=== PATIENT | female | born 2000 | race Hispanic/Latino ===

== ENCOUNTER → 2023-10-21 | Emergency (ER) | payer BC, OTHER ==
--- OUTSIDE RECORDS SUMMARY | 2023-10-21 01:53 | XMS REPORT | Continuity of Care Document ---
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 Role Phone FINA BECERRA JR Primary Care Physician ASIM Ospina Attending Clinician Unavailable Asim Fernandes MD Attending Clinician [phone] Doctor Unassigned, [place] Attending Clinician U SOURAV Kwon Attending Clinician UnavailSourav Walker Attending Clinician + [phone] Gloria Garland PA-C Attending Clinician [phone], [facility] Attending Clinician Unavailable GLORIA GARLAND Attending Clinician Unavailable YEE ALCANTARA Attending Clinician Unavailable Yee Alcantara MD Attending Clinician [phone] Steffen Hale DO Attending Clinician [phone] Trinity Conner DO Attending Clinician [phone] TRINITY CONNER Attending Clinician Unavailable NUNO MATTHEW Attending Clinician UnavailNUNO Rich Attending Clinician UnavailNuno Rich MD Attending Clinician + [phone] Jessica Cardenas RN Attending Clinician Unavailable Nurse, [facility] Attending Clinician Un available Catarino Gary CRNA Attending Clinician + [phone] ASIM FERNANDES Admitting Clinician Unavailable SOURAV AGUIRRE Admitting Clinician Unavaila GLORIA Mcdermott Admitting Clinician Unavailable TRINITY CONNER Admitting Clinician Unavailable NUNO MATTHEW Admitting Clinician UnavailNuno Rich MD Admitting Clinician [phone] Payers Payer Name Policy Type Policy Number Effective Date Expirati on Date Source Problems Condition Name Condition Details Condition Category Status Onset Date Resolution Date Last Treatment Date Treating Clinician Comments Source Cyst of left ovary Cyst of left ovary Disease Active 2021-08 0 00:00: 00 [facility] Obesity (BMI 30-39.9) Obesity (BMI 30-39.9) Disease Active 2018-08 0 00:00: 00 [facility] Intramural leiomyoma of uterus Intramural leiomyoma of uterus Disease Active 05-10 00:00: 00 [facility] Postproced ural seroma of skin and subcutaneo us tissue following other procedure Postproced ural seroma of skin and subcutaneo us tissue following other procedure Disease Active 05-10 00:00: 00 [facility] S/P explorator y laparotomy S/P explorator y laparotomy Disease Active 04-22 00:00: 00 [facility] Pelvic mass Pelvic mass Disease Active 04-17 00:00: 00 Overview: Formattin g of this note might be different from the original. 04/22/19 - Myomectom y - 15 cm mass. Histology benign fibroid. 08/07/19 - A pelvic US measured 7.3 x 2.1 x 3.7 cm. The endometri al stripe was normal, measuring 3 mm. The left ovary measured 3.2 x 3.5 x 2.6 cm. The right ovary measured 2.7 x 3.8 x 3.1 cm. No pelvic mass, torsion or other acute process seen.. [facility] Secondary amenorrhea Secondary amenorrhea Disease Active 03-05 00:00: 00 [facility] PCOS (polycysti c ovarian syndrome) PCOS (polycysti c ovarian syndrome) Disease Active 03-05 00:00: 00 Overview: Formattin g of this note might be different from the original. 03/05/19 - FSH 7.5/LH 13.5, DHEA-S 3534, free testoster one normal; 19 [place] Progester one 114 (normal); AMH 10.3 [facility] Allergies, Adverse Reactions, Alerts Allergy Name Allergy Type Status Severity Reaction(s) Onset Date Inactive Date Treating Clinician Comments Source AZITHROM YCIN (BULK) DRUG Active Rash 11-17 00:00: 00 [facility] Azithrom ycin (Bulk) Propensi ty to adverse reaction s Active Rash 11-17 00:00: 00 [facility] Social History Social Habit Start Date Stop Date Quantity Comments Source History SDOH Alcohol Frequency [facility] History SDOH Alcohol Std Drinks [facility] History SDOH Alcohol Binge [facility] History of tobacco use Current smoker [facility] Sexual orientation U [facility] Alcohol intake 2023-10-18 00:00:00 2023-10-18 00:00:00 Current drinker of alcohol (finding) [facility] Exposure to SARS-CoV-2 (event) 2022-06-05 00:00:00 2022-06-15 20:00:00 Not sure [facility] Tobacco use and exposure 2022-06-05 00:00:00 2022-06-05 00:00:00 Smokeless tobacco non-user [facility] History of Social function 2021-07-28 00:00:00 2021-07-28 00:00:00 [facility] Alcohol Comment 2019-04-18 00:00:00 2019-04-18 00:00:00 Social Drinker [facility] Sex Assigned At 2000 00:00:00 2000 00:00:00 [facility] Smoking Status Start Date Stop Date Source Ex-smoker 2022-06-05 00:00:00 2022-06-05 00:00:00 U [facility] Medications Ordered Medication Name Filled Medication Name Start Date Stop Date Current Medication? Ordering Clinician Indication Dosage Frequency Signature (SIG) Comments Components Source metroNIDAZO LE (FLAGYL) 500 mg tablet 10-19 00:00: 00 10-26 05:59 :00 Yes [id number] 500mg Take 1 tablet by mouth in the morning and 1 tablet in the evening. Do all this for 7 days. [facility] clotrimazol e 1 % vaginal cream 10-19 00:00: 00 10-26 05:59 :00 Yes [id number] 1{appli cator} Insert 1 Applicator into vagina at bedtime for 7 days. [facility] triamcinolo ne acetonide 0.1 % ointment 10-18 00:00: 00 Yes [id number] Apply to area(s) 2 (two) times daily as needed for Itching. [facility] ketoconazol e 2 % cream 10-18 00:00: 00 Yes [id number] Apply to area(s) 2 (two) times daily. [facility] triamcinolo ne acetonide 0.1 % ointment 10-18 00:00: 00 Yes [id number] Apply to area(s) 2 (two) times daily as needed for Itching. [facility] ketoconazol e 2 % cream 10-18 00:00: 00 Yes [id number] Apply to area(s) 2 (two) times daily. [facility] triamcinolo ne acetonide 0.1 % ointment 10-18 00:00: 00 Yes [id number] Apply to area(s) 2 (two) times daily as needed for Itching. [facility] ketoconazol e 2 % cream 10-18 00:00: 00 Yes [id number] Apply to area(s) 2 (two) times daily. [facility] escitalopra m oxalate 10 mg tablet 05-18 00:00: 00 Yes TAKE 1 TABLET (10 MG) BY MOUTH DAILY. [facility] escitalopra m oxalate 10 mg tablet 05-18 00:00: 00 Yes TAKE 1 TABLET (10 MG) BY MOUTH DAILY. [facility] escitalopra m oxalate 10 mg tablet 05-18 00:00: 00 Yes TAKE 1 TABLET (10 MG) BY MOUTH DAILY. [facility] escitalopra m oxalate 10 mg tablet 2021-0 05-18 00:00: 00 Yes TAKE 1 TABLET (10 MG) BY MOUTH DAILY. [facility] escitalopra m oxalate 10 mg tablet 2021-0 05-18 00:00: 00 Yes TAKE 1 TABLET (10 MG) BY MOUTH DAILY. [facility] escitalopra m oxalate 10 mg tablet 0 05-18 00:00: 00 Yes TAKE 1 TABLET (10 MG) BY MOUTH DAILY. [facility] escitalopra m oxalate 10 mg tablet 0 05-18 00:00: 00 Yes TAKE 1 TABLET (10 MG) BY MOUTH DAILY. [facility] escitalopra m oxalate 10 mg tablet 0 05-18 00:00: 00 Yes TAKE 1 TABLET (10 MG) BY MOUTH DAILY. [facility] escitalopra m oxalate 10 mg tablet 0 05-18 00:00: 00 Yes TAKE 1 TABLET (10 MG) BY MOUTH DAILY. [facility] escitalopra m oxalate 10 mg tablet 0 05-18 00:00: 00 Yes TAKE 1 TABLET (10 MG) BY MOUTH DAILY. [facility] escitalopra m oxalate 10 mg tablet 0 05-18 00:00: 00 Yes TAKE 1 TABLET (10 MG) BY MOUTH DAILY. [facility] escitalopra m oxalate 10 mg tablet 0 05-18 00:00: 00 Yes TAKE 1 TABLET (10 MG) BY MOUTH DAILY. [facility] escitalopra m oxalate 10 mg tablet 0 05-18 00:00: 00 Yes TAKE 1 TABLET (10 MG) BY MOUTH DAILY. [facility] escitalopra m oxalate 10 mg tablet 0 05-18 00:00: 00 Yes TAKE 1 TABLET (10 MG) BY MOUTH DAILY. [facility] escitalopra m oxalate 10 mg tablet 2021-0 05-18 00:00: 00 Yes TAKE 1 TABLET (10 MG) BY MOUTH DAILY. [facility] escitalopra m oxalate 10 mg tablet 05-18 00:00: 00 Yes TAKE 1 TABLET (10 MG) BY MOUTH DAILY. [facility] escitalopra m oxalate 10 mg tablet 05-18 00:00: 00 Yes TAKE 1 TABLET (10 MG) BY MOUTH DAILY. [facility] escitalopra m oxalate 10 mg tablet 05-18 00:00: 00 Yes TAKE 1 TABLET (10 MG) BY MOUTH DAILY. [facility] traMADoL 50 mg tablet 02-04 00:00: 00 Yes [id number] 50mg Take 1 tablet by mouth every 6 (six) hours as needed for Pain (scale 4-6). Indication s: acute pain [facility] ibuprofen 600 mg tablet 02-04 00:00: 00 Yes [id number] 600mg Take 1 tablet by mouth every 6 (six) hours as needed for Pain (scale 4-6). [facility] traMADoL 50 mg tablet 02-04 00:00: 00 Yes [id number] 50mg Take 1 tablet by mouth every 6 (six) hours as needed for Pain (scale 4-6). Indication s: acute pain [facility] ibuprofen 600 mg tablet 02-04 00:00: 00 Yes [id number] 600mg Take 1 tablet by mouth every 6 (six) hours as needed for Pain (scale 4-6). [facility] traMADoL 50 mg tablet 02-04 00:00: 00 Yes [id number] 50mg Take 1 tablet by mouth every 6 (six) hours as needed for Pain (scale 4-6). Indication s: acute pain [facility] ibuprofen 600 mg tablet 02-04 00:00: 00 Yes [id number] 600mg Take 1 tablet by mouth every 6 (six) hours as needed for Pain (scale 4-6). [facility] traMADoL 50 mg tablet 0 02-04 00:00: 00 Yes [id number] 50mg Take 1 tablet by mouth every 6 (six) hours as needed for Pain (scale 4-6). Indication s: acute pain [facility] ibuprofen 600 mg tablet 0 02-04 00:00: 00 Yes [id number] 600mg Take 1 tablet by mouth every 6 (six) hours as needed for Pain (scale 4-6). [facility] tra[facility]AD[facility] mg tablet 0 02-04 00:00: 00 Yes [id number] 50mg Take 1 tablet by mouth every 6 (six) hours as needed for Pain (scale 4-6). Indication s: acute pain [facility] ibuprofen 600 mg tablet 0 02-04 00:00: 00 Yes [id number] 600mg Take 1 tablet by mouth every 6 (six) hours as needed for Pain (scale 4-6). [facility] traMADoL 50 mg tablet 0 02-04 00:00: 00 Yes [id number] 50mg Take 1 tablet by mouth every 6 (six) hours as needed for Pain (scale 4-6). Indication s: acute pain [facility] ibuprofen 600 mg tablet 0 02-04 00:00: 00 Yes [id number] 600mg Take 1 tablet by mouth every 6 (six) hours as needed for Pain (scale 4-6). [facility] traMADoL 50 mg tablet 2021-0 02-04 00:00: 00 Yes [id number] 50mg Take 1 tablet by mouth every 6 (six) hours as needed for Pain (scale 4-6). Indication s: acute pain [facility] ibuprofen 600 mg tablet 0 02-04 00:00: 00 Yes [id number] 600mg Take 1 tablet by mouth every 6 (six) hours as needed for Pain (scale 4-6). [facility] traMADoL 50 mg tablet 0 02-04 00:00: 00 Yes [id number] 50mg Take 1 tablet by mouth every 6 (six) hours as needed for Pain (scale 4-6). Indication s: acute pain [facility] ibuprofen 600 mg tablet 2021-0 02-04 00:00: 00 Yes [id number] 600mg Take 1 tablet by mouth every 6 (six) hours as needed for Pain (scale 4-6). [facility] traMADoL 50 mg tablet 2021-0 02-04 00:00: 00 Yes [id number] 50mg Take 1 tablet by mouth every 6 (six) hours as needed for Pain (scale 4-6). Indication s: acute pain [facility] ibuprofen 600 mg tablet 2021-0 02-04 00:00: 00 Yes [id number] 600mg Take 1 tablet by mouth every 6 (six) hours as needed for Pain (scale 4-6). [facility] traMADoL 50 mg tablet 2021-0 02-04 00:00: 00 Yes [id number] 50mg Take 1 tablet by mouth every 6 (six) hours as needed for Pain (scale 4-6). Indication s: acute pain [facility] ibuprofen 600 mg tablet 2021-0 02-04 00:00: 00 Yes [id number] 600mg Take 1 tablet by mouth every 6 (six) hours as needed for Pain (scale 4-6). [facility] traMADoL 50 mg tablet 0 02-04 00:00: 00 Yes [id number] 50mg Take 1 tablet by mouth every 6 (six) hours as needed for Pain (scale 4-6). Indication s: acute pain [facility] ibuprofen 600 mg tablet 0 02-04 00:00: 00 Yes [id number] 600mg Take 1 tablet by mouth every 6 (six) hours as needed for Pain (scale 4-6). [facility] traMADoL 50 mg tablet 2021-0 02-04 00:00: 00 Yes [id number] 50mg Take 1 tablet by mouth every 6 (six) hours as needed for Pain (scale 4-6). Indication s: acute pain [facility] ibuprofen 600 mg tablet 2021-0 02-04 00:00: 00 Yes [id number] 600mg Take 1 tablet by mouth every 6 (six) hours as needed for Pain (scale 4-6). [facility] traMADoL 50 mg tablet 2021-0 6 00:00: 00 Yes [id number] 50mg Take 1 tablet by mouth every 6 (six) hours as needed for Pain (scale 4-6). Indication s: acute pain [facility] ibuprofen 600 mg tablet 2021-0 6-11 00:00: 00 Yes [id number] 600mg Take 1 tablet by mouth every 6 (six) hours as needed for Pain (scale 4-6). [facility] traMADoL 50 mg tablet 2021-0 611 00:00: 00 Yes [id number] 50mg Take 1 tablet by mouth every 6 (six) hours as needed for Pain (scale 4-6). Indication s: acute pain [facility] ibuprofen 600 mg tablet 2021-0 11 00:00: 00 Yes [id number] 600mg Take 1 tablet by mouth every 6 (six) hours as needed for Pain (scale 4-6). [facility] traMADoL 50 mg tablet 2021-0 02-04 00:00: 00 Yes [id number] 50mg Take 1 tablet by mouth every 6 (six) hours as needed for Pain (scale 4-6). Indication s: acute pain [facility] ibuprofen 600 mg tablet 2021-0 02-04 00:00: 00 Yes [id number] 600mg Take 1 tablet by mouth every 6 (six) hours as needed for Pain (scale 4-6). [facility] traMADoL 50 mg tablet 2021-0 02-04 00:00: 00 Yes [id number] 50mg Take 1 tablet by mouth every 6 (six) hours as needed for Pain (scale 4-6). Indication s: acute pain [facility] ibuprofen 600 mg tablet 2021-0 02-04 00:00: 00 Yes [id number] 600mg Take 1 tablet by mouth every 6 (six) hours as needed for Pain (scale 4-6). [facility] traMADoL 50 mg tablet 2021-0 02-04 00:00: 00 Yes [id number] 50mg Take 1 tablet by mouth every 6 (six) hours as needed for Pain (scale 4-6). Indication s: acute pain [facility] ibuprofen 600 mg tablet 2021-0 6-11 00:00: 00 Yes [id number] 600mg Take 1 tablet by mouth every 6 (six) hours as needed for Pain (scale 4-6). [facility] traMADoL 50 mg tablet 2021-0 6-11 00:00: 00 Yes [id number] 50mg Take 1 tablet by mouth every 6 (six) hours as needed for Pain (scale 4-6). Indication s: acute pain [facility] ibuprofen 600 mg tablet 2021-0 11 00:00: 00 Yes [id number] 600mg Take 1 tablet by mouth every 6 (six) hours as needed for Pain (scale 4-6). [facility] traMADoL 50 mg tablet 2021-0 02-04 00:00: 00 Yes [id number] 50mg Take 1 tablet by mouth every 6 (six) hours as needed for Pain (scale 4-6). Indication s: acute pain [facility] ibuprofen 600 mg tablet 2021-0 02-04 00:00: 00 Yes [id number] 600mg Take 1 tablet by mouth every 6 (six) hours as needed for Pain (scale 4-6). [facility] traMADoL 50 mg tablet 2021-0 02-04 00:00: 00 Yes [id number] 50mg Take 1 tablet by mouth every 6 (six) hours as needed for Pain (scale 4-6). Indication s: acute pain [facility] ibuprofen 600 mg tablet 2021-0 02-04 00:00: 00 Yes [id number] 600mg Take 1 tablet by mouth every 6 (six) hours as needed for Pain (scale 4-6). [facility] traMADoL 50 mg tablet 2021-0 02-04 00:00: 00 Yes [id number] 50mg Take 1 tablet by mouth every 6 (six) hours as needed for Pain (scale 4-6). Indication s: acute pain [facility] ibuprofen 600 mg tablet 2021-0 02-04 00:00: 00 Yes [id number] 600mg Take 1 tablet by mouth every 6 (six) hours as needed for Pain (scale 4-6). [facility] traMADoL 50 mg tablet 2021-0 11 00:00: 00 Yes [id number] 50mg Take 1 tablet by mouth every 6 (six) hours as needed for Pain (scale 4-6). Indication s: acute pain [facility] ibuprofen 600 mg tablet 2021-0 -11 00:00: 00 Yes [id number] 600mg Take 1 tablet by mouth every 6 (six) hours as needed for Pain (scale 4-6). [facility] traMADoL 50 mg tablet 0 6-11 00:00: 00 Yes [id number] 50mg Take 1 tablet by mouth every 6 (six) hours as needed for Pain (scale 4-6). Indication s: acute pain [facility] ibuprofen 600 mg tablet 0 02-04 00:00: 00 Yes [id number] 600mg Take 1 tablet by mouth every 6 (six) hours as needed for Pain (scale 4-6). [facility] traMADoL 50 mg tablet 0 02-04 00:00: 00 Yes [id number] 50mg Take 1 tablet by mouth every 6 (six) hours as needed for Pain (scale 4-6). Indication s: acute pain [facility] ibuprofen 600 mg tablet 0 02-04 00:00: 00 Yes [id number] 600mg Take 1 tablet by mouth every 6 (six) hours as needed for Pain (scale 4-6). [facility] traMADoL 50 mg tablet 02-04 00:00: 00 Yes [id number] 50mg Take 1 tablet by mouth every 6 (six) hours as needed for Pain (scale 4-6). Indication s: acute pain [facility] ibuprofen 600 mg tablet 0 02-04 00:00: 00 Yes [id number] 600mg Take 1 tablet by mouth every 6 (six) hours as needed for Pain (scale 4-6). [facility] traMADoL 50 mg tablet 02-04 00:00: 00 Yes [id number] 50mg Take 1 tablet by mouth every 6 (six) hours as needed for Pain (scale 4-6). Indication s: acute pain [facility] ibuprofen 600 mg tablet 02-04 00:00: 00 Yes [id number] 600mg Take 1 tablet by mouth every 6 (six) hours as needed for Pain (scale 4-6). [facility] SERTraline (ZOLOFT) 25 mg tablet 0 12-29 00:00: 00 Yes [id number] 25mg Take 1 tablet by mouth daily. [facility] SERTraline (ZOLOFT) 25 mg tablet 0 05 00:00: 00 Yes [id number] 25mg Take 1 tablet by mouth daily. [facility] SERTraline (ZOLOFT) 25 mg tablet 0 05 00:00: 00 Yes [id number] 25mg Take 1 tablet by mouth daily. [facility] SERTraline (ZOLOFT) 25 mg tablet 0 12-29 00:00: 00 Yes [id number] 25mg Take 1 tablet by mouth daily. [facility] SERTraline (ZOLOFT) 25 mg tablet 0 12-29 00:00: 00 Yes [id number] 25mg Take 1 tablet by mouth daily. [facility] SERTraline (ZOLOFT) 25 mg tablet 0 05 00:00: 00 Yes [id number] 25mg Take 1 tablet by mouth daily. [facility] SERTraline (ZOLOFT) 25 mg tablet 0 12-29 00:00: 00 Yes [id number] 25mg Take 1 tablet by mouth daily. [facility] SERTraline (ZOLOFT) 25 mg tablet 0 05 00:00: 00 Yes [id number] 25mg Take 1 tablet by mouth daily. [facility] SERTraline (ZOLOFT) 25 mg tablet 0 05 00:00: 00 Yes [id number] 25mg Take 1 tablet by mouth daily. [facility] SERTraline (ZOLOFT) 25 mg tablet 0 05 00:00: 00 Yes [id number] 25mg Take 1 tablet by mouth daily. [facility] SERTraline (ZOLOFT) 25 mg tablet 0 05 00:00: 00 Yes [id number] 25mg Take 1 tablet by mouth daily. [facility] SERTraline (ZOLOFT) 25 mg tablet 0 05 00:00: 00 Yes [id number] 25mg Take 1 tablet by mouth daily. [facility] SERTraline (ZOLOFT) 25 mg tablet 0 05 00:00: 00 Yes [id number] 25mg Take 1 tablet by mouth daily. [facility] SERTraline (ZOLOFT) 25 mg tablet 0 05 00:00: 00 Yes [id number] 25mg Take 1 tablet by mouth daily. [facility] SERTraline (ZOLOFT) 25 mg tablet 0 505 00:00: 00 Yes [id number] 25mg Take 1 tablet by mouth daily. [facility] SERTraline (ZOLOFT) 25 mg tablet 2021-0 505 00:00: 00 Yes [id number] 25mg Take 1 tablet by mouth daily. [facility] SERTraline (ZOLOFT) 25 mg tablet 0 505 00:00: 00 Yes [id number] 25mg Take 1 tablet by mouth daily. [facility] SERTraline (ZOLOFT) 25 mg tablet 2021-0 05 00:00: 00 Yes [id number] 25mg Take 1 tablet by mouth daily. [facility] SERTraline (ZOLOFT) 25 mg tablet 2021-0 05 00:00: 00 Yes [id number] 25mg Take 1 tablet by mouth daily. [facility] SERTraline (ZOLOFT) 25 mg tablet 2021-0 05 00:00: 00 Yes [id number] 25mg Take 1 tablet by mouth daily. [facility] SERTraline (ZOLOFT) 25 mg tablet 0 05 00:00: 00 Yes [id number] 25mg Take 1 tablet by mouth daily. [facility] SERTraline (ZOLOFT) 25 mg tablet 2021-0 05 00:00: 00 Yes [id number] 25mg Take 1 tablet by mouth daily. [facility] SERTraline (ZOLOFT) 25 mg tablet 2021-0 05 00:00: 00 Yes [id number] 25mg Take 1 tablet by mouth daily. [facility] SERTraline (ZOLOFT) 25 mg tablet 2021-0 505 00:00: 00 Yes [id number] 25mg Take 1 tablet by mouth daily. [facility] SERTraline (ZOLOFT) 25 mg tablet 2021-0 5-05 00:00: 00 Yes [id number] 25mg Take 1 tablet by mouth daily. [facility] SERTraline (ZOLOFT) 25 mg tablet 12-29 00:00: 00 Yes [id number] 25mg Take 1 tablet by mouth daily. [facility] SERTraline (ZOLOFT) 25 mg tablet 12-29 00:00: 00 Yes [id number] 25mg Take 1 tablet by mouth daily. [facility] norgestimat e-ethinyl estradioL 0.18/0.215/ 0.25 mg-35 mcg (28) tablet 11-10 00:00: 00 Yes [id number] 1{tbl} Take 1 tablet by mouth daily. [facility] norgestimat e-ethinyl estradioL 0.18/0.215/ 0.25 mg-35 mcg (28) tablet 11-10 00:00: 00 Yes [id number] 1{tbl} Take 1 tablet by mouth daily. [facility] norgestimat e-ethinyl estradioL 0.18/0.215/ 0.25 mg-35 mcg (28) tablet 11-10 00:00: 00 Yes [id number] 1{tbl} Take 1 tablet by mouth daily. [facility] norgestimat e-ethinyl estradioL 0.18/0.215/ 0.25 mg-35 mcg (28) tablet 11-10 00:00: 00 Yes [id number] 1{tbl} Take 1 tablet by mouth daily. [facility] norgestimat e-ethinyl estradioL 0.18/0.215/ 0.25 mg-35 mcg (28) tablet 11-10 00:00: 00 Yes [id number] 1{tbl} Take 1 tablet by mouth daily. [facility] norgestimat e-ethinyl estradioL 0.18/0.215/ 0.25 mg-35 mcg (28) tablet 11-10 00:00: 00 Yes [id number] 1{tbl} Take 1 tablet by mouth daily. [facility] norgestimat e-ethinyl estradioL 0.18/0.215/ 0.25 mg-35 mcg (28) tablet 11-10 00:00: 00 Yes [id number] 1{tbl} Take 1 tablet by mouth daily. [facility] norgestimat e-ethinyl estradioL 0.18/0.215/ 0.25 mg-35 mcg (28) tablet 11-10 00:00: 00 Yes [id number] 1{tbl} Take 1 tablet by mouth daily. [facility] norgestimat e-ethinyl estradioL 0.18/0.215/ 0.25 mg-35 mcg (28) tablet 11-10 00:00: 00 Yes [id number] 1{tbl} Take 1 tablet by mouth daily. [facility] norgestimat e-ethinyl estradioL 0.18/0.215/ 0.25 mg-35 mcg (28) tablet 11-10 00:00: 00 Yes [id number] 1{tbl} Take 1 tablet by mouth daily. [facility] norgestimat e-ethinyl estradioL 0.18/0.215/ 0.25 mg-35 mcg (28) tablet 11-10 00:00: 00 Yes [id number] 1{tbl} Take 1 tablet by mouth daily. [facility] norgestimat e-ethinyl estradioL 0.18/0.215/ 0.25 mg-35 mcg (28) tablet 11-10 00:00: 00 Yes [id number] 1{tbl} Take 1 tablet by mouth daily. [facility] norgestimat e-ethinyl estradioL 0.18/0.215/ 0.25 mg-35 mcg (28) tablet 11-10 00:00: 00 Yes [id number] 1{tbl} Take 1 tablet by mouth daily. [facility] norgestimat e-ethinyl estradioL 0.18/0.215/ 0.25 mg-35 mcg (28) tablet 11-10 00:00: 00 Yes [id number] 1{tbl} Take 1 tablet by mouth daily. [facility] norgestimat e-ethinyl estradioL 0.18/0.215/ 0.25 mg-35 mcg (28) tablet 11-10 00:00: 00 Yes [id number] 1{tbl} Take 1 tablet by mouth daily. [facility] norgestimat e-ethinyl estradioL 0.18/0.215/ 0.25 mg-35 mcg (28) tablet 11-10 00:00: 00 Yes [id number] 1{tbl} Take 1 tablet by mouth daily. [facility] norgestimat e-ethinyl estradioL 0.18/0.215/ 0.25 mg-35 mcg (28) tablet 11-10 00:00: 00 Yes [id number] 1{tbl} Take 1 tablet by mouth daily. [facility] norgestimat e-ethinyl estradioL 0.18/0.215/ 0.25 mg-35 mcg (28) tablet 11-10 00:00: 00 Yes [id number] 1{tbl} Take 1 tablet by mouth daily. [facility] norgestimat e-ethinyl estradioL 0.18/0.215/ 0.25 mg-35 mcg (28) tablet 11-10 00:00: 00 Yes [id number] 1{tbl} Take 1 tablet by mouth daily. [facility] norgestimat e-ethinyl estradioL 0.18/0.215/ 0.25 mg-35 mcg (28) tablet 11-10 00:00: 00 Yes [id number] 1{tbl} Take 1 tablet by mouth daily. [facility] norgestimat e-ethinyl estradioL 0.18/0.215/ 0.25 mg-35 mcg (28) tablet 11-10 00:00: 00 Yes [id number] 1{tbl} Take 1 tablet by mouth daily. [facility] norgestimat e-ethinyl estradioL 0.18/0.215/ 0.25 mg-35 mcg (28) tablet 11-10 00:00: 00 Yes [id number] 1{tbl} Take 1 tablet by mouth daily. [facility] norgestimat e-ethinyl estradioL 0.18/0.215/ 0.25 mg-35 mcg (28) tablet 11-10 00:00: 00 Yes [id number] 1{tbl} Take 1 tablet by mouth daily. [facility] norgestimat e-ethinyl estradioL 0.18/0.215/ 0.25 mg-35 mcg (28) tablet 11-10 00:00: 00 Yes [id number] 1{tbl} Take 1 tablet by mouth daily. [facility] norgestimat e-ethinyl estradioL 0.18/0.215/ 0.25 mg-35 mcg (28) tablet 11-10 00:00: 00 Yes [id number] 1{tbl} Take 1 tablet by mouth daily. [facility] norgestimat e-ethinyl estradioL 0.18/0.215/ 0.25 mg-35 mcg (28) tablet 11-10 00:00: 00 Yes [id number] 1{tbl} Take 1 tablet by mouth daily. [facility] norgestimat e-ethinyl estradioL 0.18/0.215/ 0.25 mg-35 mcg (28) tablet 11-10 00:00: 00 Yes [id number] 1{tbl} Take 1 tablet by mouth daily. [facility] SERTraline (ZOLOFT) 25 mg tablet 11-10 00:00: 00 12-29 00:00 :00 No [id number] 25mg Take 1 tablet by mouth daily. [facility] norgestimat e-ethinyl estradioL 0.18/0.215/ 0.25 mg-35 mcg (28) tablet 2020-08 00:00: 00 10-18 00:00 :00 No [id number] 1{tbl} Take 1 tablet by mouth daily. [facility] Vital Signs Vital Name Observation Time Observation Value Comments S ource Systolic blood pressure 2023-10-18 16:34:00 110 mm[Hg] [facility] Diastolic blood pressure 2023-10-18 16:34:00 75 mm[Hg] [facility] Heart rate 2023-10-18 16:33:00 80 /min Unive [facility] Body temperature 2023-10-18 16:33:00 36.22 Magaly [facility] Body weight 2023-10-18 16:33:00 69.219 kg [facility] BMI 2023-10-18 16:33:00 29.80 kg/m2 [facility] Systolic blood pressure 2022-06-16 16:07:00 131 mm[Hg] [facility] Diastolic blood pressure 2022-06-16 16:07:00 83 mm[Hg] [facility] Heart rate 2022-06-16 16:07:00 100 /min Unive [facility] Body temperature 2022-06-16 16:07:00 37.11 Magaly [facility] Body weight 2022-06-16 16:07:00 72.712 kg [facility] BMI 2022-06-16 16:07:00 31.31 kg/m2 [facility] Systolic blood pressure 2022-06-16 01:02:25 124 mm[Hg] [facility] Diastolic blood pressure 2022-06-16 01:02:25 80 mm[Hg] [facility] Heart rate 2022-06-16 01:02:25 74 /min [facility] Respiratory rate 2022-06-16 01:02:25 18 /min [facility] Oxygen saturation in Arterial blood by Pulse oximetry 2022-06-16 01:02:25 100 /min [facility] Body temperature 2022-06-15 23:00:00 36.83 Magaly [facility] Body weight 2022-06-15 23:00:00 72.576 kg [facility] BMI 2022-06-15 23:00:00 31.25 kg/m2 [facility] Systolic blood pressure 2022-06-05 18:18:00 128 mm[Hg] [facility] Diastolic blood pressure 2022-06-05 18:18:00 88 mm[Hg] [facility] Heart rate 2022-06-05 18:18:00 68 /min Unive [facility] Body temperature 2022-06-05 18:18:00 36.72 Magaly [facility] Respiratory rate 2022-06-05 18:18:00 18 /min [facility] Body height 2022-06-05 18:18:00 152.4 cm [facility] Body weight 2022-06-05 18:18:[address] [facility] BMI 2022-06-05 18:18:00 31.25 kg/m2 [facility] Systolic blood pressure 2022-02-04 13:16:00 156 mm[Hg] [facility] Diastolic blood pressure 2022-02-04 13:16:00 99 mm[Hg] [facility] Heart rate 2022-02-04 13:16:00 85 /min Unive [facility] Body temperature 2022-02-04 13:16:00 37.17 Magaly [facility] Respiratory rate 2022-02-04 13:16:00 16 /min [facility] Body height 2022-02-04 13:16:[address] [facility] Body weight 2022-02-04 13:16:[address] [facility] BMI 2022-02-04 13:16:00 30.47 kg/m2 [facility] Oxygen saturation in Arterial blood by Pulse oximetry 2022-02-04 13:16:00 99 /min [facility] Systolic blood pressure 2021-12-29 18:48:00 122 mm[Hg] [facility] Diastolic blood pressure 2021-12-29 18:48:00 75 mm[Hg] [facility] Heart rate 2021-12-29 18:48:00 104 /min Unive [facility] Body temperature 2021-12-29 18:48:00 37.11 Magaly [facility] Body height 2021-12-29 18:48:[address] [facility] Body weight 2021-12-29 18:48:[address] [facility] BMI 2021-12-29 18:48:00 31.09 kg/m2 [facility] Procedures Procedure Date / Time Performed Performing Clinician Source ASSIGNMENT OF BENEFITS 2023-10-18 16:23:22 Docto r Unassigned, Morea [facility] US PELVIS COMPLETE WITH TRANSVAGINAL 2022-08-24 14:43:31 Asmi Fernandes [facility] ASSIGNMENT OF BENEFITS 2022-08-24 13:52:08 Docto r Unassigned, Morea [facility] ASSIGNMENT OF BENEFITS 2022-06-15 23:55:19 Docto r Unassigned, [facility] PELVIS COMPLETE WITH TRANSVAGINAL 2022-06-15 23:51:31 Sourav Aguirre [facility] POCT TEST 2022-06-15 23:23:00 Paulie Aguirre [facility] URINALYSIS 2022-06-15 23:20:00 Sourav Aguirre [facility] CONSENT/REFUSAL FOR DIAGNOSIS AND TREATMENT 2022-06-15 22:58:19 Doctor Unassigned, Morea [facility] US PELVIS COMPLETE WITH TRANSVAGINAL 2022-06-09 22:50:00 Gloria Garland [facility] ASSIGNMENT OF BENEFITS 2022-06-09 22:09:40 Docto r Unassigned, Morea [facility] CONSENT/REFUSAL FOR DIAGNOSIS AND TREATMENT 2022-06-09 22:08:59 Doctor Unassigned, Morea [facility] POCT URINALYSIS W/O SPECIFIC GRAVITY 2022-06-05 00:00:00 Gloria Garland [facility] NOTICE OF PRIVACY PRACTICES 2022-02-04 13:13:21 Doctor Unassigned, Morea [facility] CONSENT/REFUSAL FOR DIAGNOSIS AND TREATMENT 2022-02-04 13:11:12 Doctor Unassigned, Morea [facility] Encounters Start Date/Time End Date/Time Encounter Type Admission Type Attending [facility] Care Facility Care Department Encounter ID Source 2023-10-19 00:00:00 2023-10-19 00:00:00 Case Management Asim Fernandes [facility] ED PROFESSIO [facility] 1.840.114 350.1.13.10 4.2.7.2.686 [id number] 134 [id number] [facility] 2023-10-18 10:30:00 2023-10-18 10:50:05 Outpatient R DENA [facility] [id number] [facility] 2023-10-18 10:30:00 2023-10-18 10:50:05 Office Visit Asim Fernandes [facility] ED PROFESSIO [facility] 1.840.114 350.1.13.10 4.2.7.2.686 [id number] [facility] 2023-10-18 00:00:00 2023-10-18 00:00:00 Orders Only Doctor Unassigned, More[place] [facility] 1.84.114 350.1.13.10 4.2.7.2.686 [id number] [facility] 2022-08-24 07:53:21 2022-08-24 23:59:00 Outpatient R DENA [facility] [id number] [facility] 2022-08-24 07:53:21 2022-08-24 23:59:00 [facility] 1.84.114 350.1.13.10 4.2.7.2.686 [id number] [facility] 2022-08-24 00:00:00 2022-08-24 00:00:00 Orders Only Doctor Unassigned, [place] [facility] 1..114 350.1.13.10 4.2.7.2.686 [id number] [facility] 2022-07-28 08:00:00 2022-07-28 08:00:00 Outpatient R [facility] [id number] [facility] 2022-06-16 11:00:00 2022-06-16 11:51:49 Outpatient R DENA ASIM [facility] [id number] [facility] 2022-06-16 11:00:00 2022-06-16 11:51:49 Office Visit [facility] 1.2.840.114 350.1.13.10 4.2.7.2.686 [id number] [facility] 2022-06-15 18:02:00 2022-06-15 20:04:00 Emergency X [facility] E[facility] [id number] [facility] 2022-06-15 18:02:00 2022-06-15 20:04:00 Emergency [facility] 1.2.840.114 350.1.13.10 4.2.7.2.686 [id number] [facility] 2022-06-15 00:00:00 2022-06-15 00:00:00 Patient Secure Msg [facility] 1.2.840.114 350.1.13.10 4.2.7.2.686 [id number] [facility] 2022 13:00:00 2022 13:15:00 Gravity Flow Irrigator Visit 2, Adc [facility] 1.2.840.114 350.1.13.10 4.2.7.2.686 [id number] [facility] 2022 13:00:00 2022 13:00:00 Outpatient R GLORIA GARLAND [facility] [id number] [facility] 2022-06-13 00:00:00 2022-06-13 00:00:00 Case Management Gloria Garland [facility] 1.2.840.114 350.1.13.10 4.2.7.2.686 [id number] [facility] 2022-06-12 00:00:00 2022-06-12 00:00:00 Telephone Gloria Garland [facility] 1.2.840.114 350.1.13.10 4.2.7.2.686 [id number] 134 [id number] [facility] 2022-06-12 00:00:00 2022-06-12 00:00:00 Patient Secure Msg Dada [facility] 1.2.840.114 350.1.13.10 4.2.7.2.686 [id number] [facility] 2022-06-09 17:10:53 2022-06-09 23:59:00 Outpatient R GLORIA GARLAND [facility] [id number] [facility] 2022-06-09 17:10:53 2022-06-09 23:59:00 Hospital Encounter Gloria Garland [facility] 1.2.840.114 350.1.13.10 4.2.7.2.686 [id number] [facility] 2022-06-07 00:00:00 2022-06-07 00:00:00 Patient Secure Msg Dada [facility] 1.2.840.114 350.1.13.10 4.2.7.2.686 [id number] [facility] 2022-06-05 13:00:00 2022-06-05 13:32:47 Outpatient R GLORIA GARLAND [facility] [id number] [facility] 2022-06-05 13:00:00 2022-06-05 13:32:47 Office Visit Gloria Garland [facility] 1.2.840.114 350.1.13.10 4.2.7.2.686 [id number] [facility] 2022-06-05 00:00:00 2022-06-05 00:00:00 Telephone Gloria Garland [facility] 1.2.840.114 350.1.13.10 4.2.7.2.686 [id number] 134 [id number] [facility] 2022-06-01 00:00:00 2022-06-01 00:00:00 Refill Gloria Garland [facility] 1.2.840.114 350.1.13.10 4.2.7.2.686 [id number] [facility] 2022-05-19 00:00:00 2022-05-19 00:00:00 Telephone Gloria Garland [facility] 1.2.840.114 350.1.13.10 4.2.7.2.686 [id number] 134 [id number] [facility] 2022-05-12 00:00:00 2022-05-12 00:00:00 Patient Secure Msg Gloria Garland [facility] 1.2.840.114 350.1.13.10 4.2.7.2.686 [id number] [facility] 2022-03-16 08:00:00 2022-03-16 08:00:00 Outpatient GLORIA LOPEZ [facility] [id number] [facility] 2022-02-09 08:00:00 2022-02-09 08:00:00 Outpatient GLORIA LOPEZ [facility] [id number] [facility] 2022-02-09 08:00:00 2022-02-09 08:00:00 Outpatient R GLORIA GARLAND [facility] [id number] [facility] 2022-02-04 08:18:00 2022-02-04 09:24:00 Emergency X YEE ALCANTARA [facility] [id number] [facility] 2022-02-04 08:18:00 2022-02-04 09:24:00 Emergency Yee Alcantara [facility] 1.2.840.114 350.1.13.10 4.2.7.2.686 [id number] [facility] 2021-12-29 13:30:00 2021-12-29 14:02:28 Office Visit Dada Gloria [facility] 1.2.840.114 350.1.13.10 4.2.7.2.686 [id number] [facility] 2021-12-29 13:30:00 2021-12-29 14:02:28 Outpatient R DADA [facility] [id number] [facility] 2021-12-29 13:30:00 2021-12-29 13:30:00 [facility] [id number] 2021-12-03 00:00:00 2021-12-03 00:00:00 Refill Dada [facility] 1.2.840.114 350.1.13.10 4.2.7.2.686 [id number] [facility] 2021-11-11 11:45:00 2021-11-11 11:56:02 Gravity Flow Irrigator Visit 2, [facility] 1.2.840.114 350.1.13.10 4.2.7.2.686 [id number] [facility] 2021-11-11 11:45:00 2021-11-11 11:45:00 Outpatient R GLORIA GARLAND [facility] [id number] [facility] 2021-11-11 11:45:00 2021-11-11 11:45:00 Outpatient R GLORIA GARLAND [facility] [id number] [facility] 2021-11-10 10:00:00 2021-11-10 10:34:43 [facility] [id number] [facility] 2021-11-10 10:00:00 2021-11-10 10:34:43 Office Visit Gloria Garland [facility] 1.2.840.114 350.1.13.10 4.2.7.2.686 [id number] 134 [id number] [facility] 2021-11-10 10:00:00 2021-11-10 10:34:43 Outpatient R GLORIA GARLAND [facility] [id number] [facility] 2021-10-20 00:00:00 2021-10-20 00:00:00 Telephone Gloria Garland [facility] 1.2.840.114 350.1.13.10 4.2.7.2.686 [id number] [facility] 2021-10-18 00:00:00 2021-10-18 00:00:00 Refill Gloria Garland [facility] 1.2.840.114 350.1.13.10 4.2.7.2.686 [id number] [facility] 2021-09-28 00:00:00 2021-09-28 00:00:00 Patient Secure [facility] 1.2.840.114 350.1.13.10 4.2.7.2.686 [id number] 134 [id number] [facility] 2021-09-20 00:00:00 2021-09-20 00:00:00 Refill Gloria Garland [facility] 1.2.840.114 350.1.13.10 4.2.7.2.686 [id number] [facility] 2021-07-28 08:37:09 2021-07-28 09:33:11 Office Visit Gloria Garland [facility] 1.2840.114 350.1.13.10 4.2.7.2.686 [id number] [facility] 2021-07-28 08:30:00 2021-07-28 09:33:11 Outpatient R DADA [facility] [id number] [facility] 2021-07-28 08:30:00 2021-07-28 08:30:00 Outpatient R DADA [facility] [id number] [facility] 2021-07-28 00:00:00 2021-07-28 00:00:00 Orders Only Doctor Unassigned, [place] [facility] 1.2840.114 350.1.13.10 4.2.7.2.686 [id number] [facility] 2021-07-28 00:00:00 2021-07-28 00:00:00 Letter (Out) Gloria Garland [facility] 1.2.840.114 350.1.13.10 4.2.7.2.686 [id number] 134 [id number] [facility] 2021-06-22 00:00:00 2021-06-22 00:00:00 Patient Secure Msg Gloria Garland [facility] 1.2840.114 350.1.13.10 4.2.7.2.686 [id number] [facility] 2021-06-21 00:00:00 2021-06-21 00:00:00 Telephone Gloria Garland [facility] 1.2.840.114 350.1.13.10 4.2.7.2.686 [id number] 134 [id number] [facility] 2021-06-20 13:54:19 2021-06-20 14:09:19 Gravity Flow Irrigator Visit 2, Adc Lab Gloria Garland [facility] 1.2.840.114 350.1.13.10 4.2.7.2.686 [id number] [facility] 2021-06-20 13:16:39 2021-06-20 13:46:39 Office Visit Gloria Garland [facility] 1.2.840.114 350.1.13.10 4.2.7.2.686 [id number] [facility] 2021-06-20 13:30:00 2021-06-20 13:30:00 Outpatient R GLORIA GARLAND [facility] [id number] [facility] 2021-02-17 07:47:01 2021-02-17 08:44:19 Office Visit Gloria Garland [facility] 1.2.840.114 350.1.13.10 4.2.7.2.686 [id number] [facility] 2021-02-17 08:00:00 2021-02-17 08:00:00 [facility] [id number] [facility] 2020-11-16 00:00:00 2020-11-16 00:00:00 Patient Outreach Steffen Hale [facility] 1.2.840.114 350.1.13.10 4.2.7.2.686 [id number] [facility] 2020-08-17 09:29:24 2020-08-17 23:59:00 Hospital Encounter Gloria Garland [facility] 1.2.840.114 350.1.13.10 4.2.7.2.686 [id number] [facility] 2020-08-17 00:00:00 2020-08-17 00:00:00 Outpatient R GLORIA GARLAND [facility] [id number] [facility] 2020-07-28 15:43:48 2020-07-28 15:58:48 Gravity Flow Irrigator Visit 2, [facility] 1.2.840.114 350.1.13.10 4.2.7.2.686 [id number] [facility] 2020-07-28 14:50:36 2020-07-28 15:41:13 Office Visit Gloria Garland [facility] nal Building 1.2.840.114 350.1.13.10 4.2.7.2.686 [id number] [facility] 2020-07-28 14:45:00 2020-07-28 14:45:00 [facility] [id number] [facility] 2020-07-26 10:30:00 2020-07-26 10:30:00 Outpatient R GLORIA GARLAND [facility] [id number] [facility] 2020-03-10 14:49:03 2020-03-10 15:04:03 Gravity Flow Irrigator Visit 2, [facility] 1.2.840.114 350.1.13.10 4.2.7.2.686 [id number] [facility] 2020-03-10 14:02:41 2020-03-10 14:32:41 [facility] 1.2.840.114 350.1.13.10 4.2.7.2.686 [id number] [facility] 2020-03-10 14:00:00 2020-03-10 14:00:00 Outpatient R DADA [facility] [id number] [facility] 2020-03-10 00:00:00 2020-03-10 00:00:00 [facility] 1.2.840.114 350.1.13.10 4.2.7.2.686 [id number] [facility] 2020-03-10 00:00:00 2020-03-10 00:00:00 Orders Only Doctor Unassigned, [place] [facility] 1.2840.114 350.1.13.10 4.2.7.2.686 [id number] [facility] 2020-02-05 00:00:00 2020-02-05 00:00:00 [facility] 1.2.840.114 350.1.13.10 4.2.7.2.686 [id number] [facility] 2019-10-30 09:34:10 2019-10-30 13:08:00 Emergency [facility] 1.2.840.114 350.1.13.10 4.2.7.2.686 [id number] [facility] 2019-10-30 09:34:10 2019-10-30 13:08:00 Emergency X TRINITY CONNER [facility] [id number] [facility] 2019-10-30 00:00:00 2019-10-30 00:00:00 Orders Only Doctor Unassigned, [place] [facility] 1.2840.114 350.1.13.10 4.2.7.2.686 [id number] [facility] 2019-10-01 09:52:15 2019-10-01 10:37:39 Office Visit Gloria Garland [facility] 1.2.840.114 350.1.13.10 4.2.7.2.686 [id number] [facility] 2019-10-01 00:00:00 2019-10-01 00:00:00 Orders Only Doctor Unassigned, [place] [facility] 1.2.840.114 350.1.13.10 4.2.7.2.686 [id number] [facility] 2019-08-07 19:07:46 2019-08-07 23:59:00 Outpatient R [facility] [id number] [facility] 2019-05-09 14:24:31 2019-05-09 16:05:16 Office Visit Nuno Matthew [facility] 1..840.114 350.1.13.10 4.2.7.2.686 [id number] [facility] 2019-05-03 00:00:00 2019-05-03 00:00:00 Nurse Triage Jessica Cardenas [facility] 1.2.840.114 350.1.13.10 4.2.7.2.686 [id number] [facility] 2019-04-29 09:16:37 2019-04-29 09:45:44 Nurse Visit Nurse, [facility] Asim Fernandes [facility] 1.2.840.114 350.1.13.10 4.2.7.2.686 [id number] [facility] 2019-04-22 11:41:00 2019-04-23 19:15:00 Hospital Encounter Nuno Matthew [facility] 1.2.840.114 350.1.13.10 4.2.7.2.686 [id number] [facility] 2019-04-22 13:43:00 2019-04-22 16:39:00 Anesthesia Abdirahman Catarino Richardson [facility] 1.2840.114 350.1.13.10 4.2.7.2.686 [id number] [facility] 2019-04-22 00:00:00 2019-04-22 00:00:00 Orders Only Doctor Unassigned, [place] [facility] 1.20.114 350.1.13.10 4.2.7.2.686 [id number] [facility] 2019-04-21 08:59:36 2019-04-21 09:14:36 Gravity Flow Irrigator Visit 2, Adc Lab Gloria Garland [facility] 1.0.114 350.1.13.10 4.2.7.2.686 [id number] [facility] 2019-04-21 00:00:00 2019-04-21 00:00:00 Orders Only Doctor Unassigned, [place] [facility] 1.2840.114 350.1.13.10 4.2.7.2.686 [id number] [facility] 2019-04-17 00:00:00 2019-04-17 00:00:00 Case Management Nuno Matthew [facility] Building 1.2840.114 350.1.13.10 4.2.7.2.686 [id number] [facility] 2019-04-17 00:00:00 2019-04-17 00:00:00 Prep For Surgery Nuno Matthew [facility] 1.20.114 350.1.13.10 4.2.7.2.686 [id number] [facility] 2019-04-16 13:32:46 2019-04-16 14:35:51 Office Visit Nuno Matthew [facility] 1.2.840.114 350.1.13.10 4.2.7.2.686 [id number] [facility] 2019-04-16 00:00:00 2019-04-16 00:00:00 Orders Only Doctor Unassigned, [place] [facility] 1.2840.114 350.1.13.10 4.2.7.2.686 [id number] [facility] 2019-04-15 12:43:03 2019-04-15 23:59:00 Hospital Encounter [facility] 1.2.840.114 350.1.13.10 4.2.7.2.686 [id number] [facility] 2019-04-10 12:20:29 2019-04-10 23:59:00 Hospital Encounter [facility] [id number] [facility] 2019-04-10 00:00:00 2019-04-10 00:00:00 Orders Only Doctor Unassigned, [place] [facility] [id number] [facility] Results Test Description Test Time Test Comments Results Result Co mments [facility] [id number] 21:28:00* Test Item Value Reference Range Interpretation Comme nts POCT PH U (test code = 3254) 5 mg/dl 5-8 POCT U LEUK EST (test code = 3263) neg Negative - Negative POCT U NIT (test code = 3262) neg Negative - Negati ve POCT U PROT (test code = 3259) trace Negative - Negat denny POCT U GLU (test code = 3256) neg Negative - Negati ve POCT U KETONE (test code = 3258) neg Negative - Neg ative POCT U BLD (test code = 3257) neg Negative - Negati ve [facility] SPECIFIC [id number] 21:28:00* Test Item Value Reference Range Interpretation Comme nts POCT PH U (test code = 3254) 5 mg/dl 5-8 POCT U LEUK EST (test code = 3263) neg Negative - Negative POCT U NIT (test code = 3262) neg Negative - Negati ve POCT U PROT (test code = 3259) trace Negative - Negat denny POCT U GLU (test code = 3256) neg Negative - Negati ve POCT U KETONE (test code = 3258) neg Negative - Neg ative POCT U BLD (test code = 3257) neg Negative - Negati ve [facility]
[2023-10-21 02:48] LABS: Absolute Lymphocytes (CBC) 1.2 K/uL (0.7-4.9); Hematocrit 41.1 % (36.0-45.0); Lymphocytes % 7.6 % (15.3-44.8); MCV 83.2 fL (80-100); MPV 9.4 fL (7.6-11.3); Platelets 290 thou/uL (152-406); RBC Red Blood Cell Count 4.94 M/uL (3.86-4.86)
[2023-10-21 03:00] LABS: Protime INR 1.11
[2023-10-21 03:05] LABS: Specific Gravity 1.026 (1.005-1.030); Urine Bacteria <20 /HPF (<20); Urine Bilirubin NEGATIVE (Negative); Urine Blood Negative (Negative); Urine Clarity Extremely Turbid (Clear); Urine Color Yellow (Yellow); Urine Glucose NEGATIVE (Negative); Urine Mucus Slight /HPF (None Seen); Urine Protein 1+ (Negative); Urine RBC <5 /HPF (None Seen); Urine Urobilinogen Normal (Normal)
[2023-10-21 03:07] LABS: ALT/SGPT 24 U/L (13-56); AST/SGOT 12 U/L (15-37); Albumin 4.4 g/dL (3.4-5.0); Alkaline Phosphatase 92 U/L (45-117); BUN Blood Urea Nitrogen 10 mg/dL (7-18); Bicarbonate 25 mEq/L (21-32); Bilirubin Direct 0.2 mg/dL (0-0.2); Bilirubin Indirect, Calculated 0.1 mg/dL (0.2-0.8); Bilirubin Total 0.3 mg/dL (0.2-1.0); Glomerular Filtration Rate 124 ml/min (=/>90); Glucose Level 103 mg/dL (74-106); Potassium 3.7 mEq/L (3.5-5.1); Protein, Total 8.2 g/dL (6.4-8.2); Sodium Level 140 mEq/L (136-145)
[2023-10-21 03:09] LABS: Barbiturates NEGATIVE (NEGATIVE); Benzodiazepines NEGATIVE (NEGATIVE); Cocaine POSITIVE (NEGATIVE); METHAMPHETAM NEGATIVE (NEGATIVE); Methadone NEGATIVE (NEGATIVE); Opiates NEGATIVE (NEGATIVE); Phencyclidine NEGATIVE (NEGATIVE); THC Cannibis POSITIVE (NEGATIVE)
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
[2023-10-21 10:13] VITALS: BP 130/64; TEMP 97.8; O2SAT 95
--- NOTE | 2023-10-21 19:21 | RAD REPORT ---
EXAM DESCRIPTION: RAD - Elbow Left 3 View - 10/21/2023 2:29 am CLINICAL HISTORY: PAIN TECHNIQUE: Two views of the left shoulder. COMPARISON: No relevant prior studies available. FINDINGS: Bones/joints: Unremarkable. No acute fracture. No dislocation. Soft tissues: Unremarkable. * A single impression for all exams can be found at the end of this report EXAM DESCRIPTION: XR Left Elbow Complete, 3 Views CLINICAL HISTORY: PAIN TECHNIQUE: Frontal, lateral and oblique views of the left elbow. COMPARISON: No relevant prior studies available. FINDINGS: Bones/joints: Unremarkable. No acute fracture. No dislocation. Soft tissues: Unremarkable. * A single impression for all exams can be found at the end of this report IMPRESSION: XR Left Shoulder Complete, 2 Views: No acute injury. XR Left Elbow Complete, 3 Views: No acute injury. Electronically signed by: Jarod Vanessa MD 10/21/2023 03:10 AM SPEECH PATHOLOGY TEACHER Due to temporary technical issues with the PACS/Fluency reporting system, reports are being signed by the in house radiologists without review as a courtesy to insure prompt reporting. The interpreting radiologist is fully responsible for the content of the report.
--- NOTE | 2023-10-21 19:26 | RAD REPORT ---
EXAM DESCRIPTION: RAD - Shoulder Left 2 View - 10/21/2023 2:29 am CLINICAL HISTORY: PAIN TECHNIQUE: Two views of the left shoulder. COMPARISON: No relevant prior studies available. FINDINGS: Bones/joints: Unremarkable. No acute fracture. No dislocation. Soft tissues: Unremarkable. * A single impression for all exams can be found at the end of this report EXAM DESCRIPTION: XR Left Elbow Complete, 3 Views CLINICAL HISTORY: PAIN TECHNIQUE: Frontal, lateral and oblique views of the left elbow. COMPARISON: No relevant prior studies available. FINDINGS: Bones/joints: Unremarkable. No acute fracture. No dislocation. Soft tissues: Unremarkable. * A single impression for all exams can be found at the end of this report IMPRESSION: XR Left Shoulder Complete, 2 Views: No acute injury. XR Left Elbow Complete, 3 Views: No acute injury. Electronically signed by: Jarod Vanessa MD 10/21/2023 03:10 AM BANDER AND CELLOPHANER MACHINE HELPER Due to temporary technical issues with the PACS/Fluency reporting system, reports are being signed by the in house radiologists without review as a courtesy to insure prompt reporting. The interpreting radiologist is fully responsible for the content of the report.
--- NOTE | 2023-10-21 20:08 | RAD REPORT ---
EXAM DESCRIPTION: RAD - Ribs Left - 10/21/2023 2:29 am CLINICAL HISTORY: PAIN TECHNIQUE: Frontal and oblique views of the left ribs. COMPARISON: No relevant prior studies available. FINDINGS: Lungs: Unremarkable as visualized. No consolidation. Pleural space: Unremarkable. No pneumothorax. Bones/joints: Unremarkable. No acute fracture. IMPRESSION: No acute injury. Electronically signed by: Jarod Vanessa MD 10/21/2023 03:11 AM STONE SPREADER OPERATOR Due to temporary technical issues with the PACS/Fluency reporting system, reports are being signed by the in house radiologists without review as a courtesy to insure prompt reporting. The interpreting radiologist is fully responsible for the content of the report.
--- NOTE | 2023-10-23 15:50 | EKG ---
Test Date: 2023-10-21 Test Time: 02:48:29 Horse Wrangler: RV MEASUREMENT RESULTS: Intervals: Rate: 79 HI: 146 QRSD: 76 QT: 384 QTc: 440 [place]: P: 72 HI: 146 QRS: 88 T: 57 INTERPRETIVE STATEMENTS: Normal sinus rhythm Normal ECG Compared to ECG 02/14/2012 12:04:26 No significant changes Electronically Signed On 10-23-23 15:46:59 SPAR FINISHER by Shivam Carson
== END ==
LOC: ER 01:49
DX: F43.23 Adjustment disorder with mixed anxiety and depressed mood (principal); Y04.8XXA Assault by other bodily force, initial encounter; Z88.1 Allergy status to other antibiotic agents
CPT/HCPCS: 36415; 80048; 80076; 80143; 80179; 80307; 81001; 81025; 82077; 85025; 85610; 85730; 87086; 87088; 93005; 99285

== ENCOUNTER 2024-08-25 11:20 | Emergency (ER) | payer OTHER, SELFPAY ==
[2024-08-25] MEDS ORDERED: ONDANSETRON 4 MG/2 ML VIAL ONE (12:05)
[2024-08-25] MEDS ORDERED: FAMOTIDINE 20 MG/2 ML VIAL IV ONE (12:06)
[2024-08-25] MEDS ORDERED: KETOROLAC 30 MG/ML INJ ONE (12:06)
[2024-08-25] MEDS ORDERED: NA CHLORIDE 0.9% 1,000 ML ONE (12:06)
[2024-08-25 12:09] LABS: Absolute Basophils 0.1 K/uL (0-0.5); Absolute Eosinophils 0.1 K/uL (0-0.5); Absolute Lymphocytes (CBC) 1.7 K/uL (0.7-4.9); Absolute Monocytes 0.5 K/uL (0.1-1.3); Absolute Neutrophil 3.9 K/uL (1.8-8.0); Basophils % 1.2 % (0-1.3); Eosinophils % 0.9 % (0-4.4); Hematocrit 41.5 % (36.0-45.0); Hemoglobin 13.6 g/dL (12.0-15.0); Lymphocytes % 27.1 % (15.3-44.8); MCH 27.8 pg (27.0-35.0); MCHC 32.9 g/dL (32.0-36.0); MCV 84.4 fL (80-100); MPV 10.1 fL (7.6-11.3); Monocytes % 7.7 % (3.3-12.3); Neutrophils % 63.1 % (41.7-73.7); Platelets 270 thou/uL (152-406); RBC Red Blood Cell Count 4.91 M/uL (3.86-4.86); Red Cell Distribution Width 14.6 % (12.1-15.2)
[2024-08-25 12:29] LABS: Albumin 3.9 g/dL (3.4-5.0); Anion Gap 13.6 mEq/L (5.0-15.0); Bilirubin Total 0.5 mg/dL (0.2-1.0); Globulin 3.9 g/dL (2.3-3.5); Potassium 3.6 mEq/L (3.5-5.1); Protein, Total 7.8 g/dL (6.4-8.2)
[2024-08-25 13:05] LABS: Specific Gravity 1.026 (1.005-1.030)
[2024-08-25 13:06] LABS: Specific Gravity 1.026 (1.005-1.030); Sqamous Epithelial <5 /HPF (None Seen); Urine Bacteria None Seen /HPF (<20); Urine Bilirubin NEGATIVE (Negative); Urine Blood Negative (Negative); Urine Clarity Turbid (Clear); Urine Color Light-Yellow (Yellow); Urine Culture Reflex Order NOT NEEDED; Urine Glucose NEGATIVE (Negative); Urine Ketones NEGATIVE (Negative); Urine Microscopic Reflex YN ORDER UMIC; Urine Mucus Slight /HPF (None Seen); Urine Nitrite NEGATIVE (Negative); Urine Protein 1+ (Negative); Urine RBC <5 /HPF (None Seen); Urine Urobilinogen Normal (Normal); Urine WBC <5 /HPF (<5); Urine pH 8.5 (5.0-7.0)
[2024-08-25] MEDS ORDERED: METOCLOPRAMIDE 10 MG/2mL INJ ONE (14:15)
--- NOTE | 2024-08-25 14:47 | RAD REPORT ---
EXAMINATION: CT ABDOMEN AND PELVIS WITH CONTRAST CLINICAL INDICATION: Female, 24 years old.ABD PAIN TECHNIQUE: CT abdomen and pelvis was performed, after the administration of IV contrast, as per [facility] protocol. Axial, sagittal and coronal reconstructions were obtained. One or more of the following dose reduction techniques were used: Automated exposure control, adjustment of the mA and/o r kV according to patient size, and/or iterative reconstruction. Unless otherwise specified, incidental findings do not require dedicated imaging follow-up. [id number]. COMPARISON: No prior exam. FINDINGS: LOWER CHEST: No acute process identified.No significant pericardial effusion. Mild circumferential th ickening of the distal esophagus which could reflect esophagitis. UPPER GI: No significant abnormality. LIVER: 2.7 cm high attenuation lesion near the IVC in the right hepatic lobe with central low attenua tion which may represent focal nodular hyperplasia. GALLBLADDER/BILE DUCTS: No biliary ductal dilatation.? PANCREAS: No mass, ductal dilation, or susan-pancreatic fluid. SPLEEN: Unremarkable. ADRENALS: No adrenal masses. KIDNEYS AND URETERS: No hydronephrosis.No suspicious renal mass. ABDOMINAL AORTA AND OTHER VESSELS: Normal caliber aorta and IVC. PERITONEUM: No abnormal free fluid. No free air. LYMPH NODES: No pathologic lymphadenopathy. ABDOMINAL WALL: Unremarkable SMALL BOWEL/COLON: Small bowel has normal course and caliber. No colonic wall thickening or pericolon ic inflammatory changes.Normal appendix. URINARY BLADDER: Underdistended but grossly unremarkable. REPRODUCTIVE ORGANS: No pathologic process. MUSCULOSKELETAL: No acute or suspicious osseous abnormality. ADDITIONAL FINDINGS: None. IMPRESSION: No acute or significant abnormalities seen in the abdomen or pelvis. Lesion in the right hepatic lobe likely benign in a patient of this age group but more definitive norman racterization with MRI with contrast is recommended. Focal nodular hyperplasia is suspected.
--- NOTE | 2024-08-25 14:54 | EDPHYS ---
Physician Documentation [facility] Name: Deion Whitehead Age: 24 yrs Sex: Female : 2000 Arrival Date: 08/25/2024 Time: 11:20 Bed 23 Private MD: ED Physician Ana An HPI: 08/25 11:41 This 24 yrs old Female presents to ER via Unassigned with complaints of sb4 Vomiting. 11:41 The patient presents to the emergency department with nausea, vomiting. Onset: The sb4 symptoms/episode began/occurred this morning. Possible causes: alcohol/drugs. Patient states that she drank alcohol last night and took a gummy that possibly had psychedelic mushrooms in it. States that this morning, she woke up with nausea and vomiting. States that she cannot hold anything down. Actively vomiting during triage. 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 - Infectious Disease History:: Denies. - Social history:: Smoking status: Patient denies any tobacco usage or history of. ROS: 11:41 Constitutional: Negative for fever, chills, and weight loss, sb4 11:41 Abdomen/GI: Positive for nausea and vomiting, 11:41 All other systems are negative, Exam: 11:41 Head/Face: Normocephalic, atraumatic. Eyes: Extra-ocular motions intact. Periorbital sb4 areas with no swelling, redness, or edema. ENT: Mucous membranes moist. Cardiovascular: Regular rate and rhythm with a normal S1 and S2. Respiratory: No increased work of breathing, no retractions or nasal flaring. Abdomen/GI: Soft, non-tender, no distension. Skin: Warm, dry with normal turgor. Normal color with no rashes, no lesions, and no evidence of cellulitis. 11:41 Constitutional: The patient appears alert, awake, in obvious distress, Vomiting. Vital Signs: 11:44 BP 133 / 84; Pulse 97; Resp 18; Temp 97.6(TE); Pulse Ox 98% on R/A; Weight 81.65 kg; ss Height 5 ft. 0 in. ; Pain 0/10; 12:30 BP 122 / 91; Pulse 76; Resp 16; Pulse Ox 99% ; me1 13:30 BP 104 / 69; Pulse 67; Resp 15; Pulse Ox 100% ; me1 14:30 BP 118 / 82; Pulse 76; Resp 15; Pulse Ox 100% ; me1 11:44 Body Mass Index 35.15 (81.65 kg, 152.4 cm) ss 11:44 Pain Scale: Adult ss MDM: 11:34 Medical Screening Exam initiated sb4 13:52 ED course: still nauseated, has continued abd pain, will order additional antiemetics sb4 and CT abd/pelv. 14:53 Data reviewed: vital signs, nurses notes, lab test result(s), radiologic studies, and sb4 as a result, I will discharge patient. Counseling: I had a detailed discussion with the patient and/or guardian regarding the historical points, exam findings, and any diagnostic results supporting the discharge/admit diagnosis, lab results, radiology results, to return to the emergency department if symptoms worsen or persist or if there are any questions or concerns that arise at home. 14:54 Special discussion: I discussed with the patient the need to follow-up with the sb4 PCP/specialist for the noted incidental finding on X-ray/CT scanning. 08/25 11:39 Order name: CBC with Diff; Complete Time: 12:11 sb4 08/25 11:39 Order name: CMP; Complete Time: 12:30 sb4 08/25 11:39 Order name: Lipase; Complete Time: 12:30 sb4 08/25 11:39 Order name: Test, Urine; Complete Time: 13:07 sb4 08/25 11:39 Order name: Urinalysis w/ reflexes; Complete Time: 13:07 sb4 08/25 13:52 Order name: CT Abd/Pelvis - IV Contrast Only; Complete Time: 14:48 sb4 08/25 11:39 Order name: IV Saline Lock; Complete Time: 11:55 sb4 08/25 11:39 Order name: Labs collected and sent; Complete Time: 11:55 sb4 08/25 12:31 Order name: PO challenge; Complete Time: 13:25 sb4 Administered Medications: 12:08 Drug: Ondansetron IVP 4 mg IVP once; over 2 minutes Route: IVP; Site: right antecubital;ss 13:25 Follow up: Response: No adverse reaction ss 12:11 Drug: Famotidine IVP 20 mg IVP once; dilute with 10 mL 0.9% NaCl; give over 2 minutes ss Route: IVP; Site: right antecubital; 13:25 Follow up: Response: No adverse reaction ss 12:11 Drug: NS 0.9% IV 1000 ml IV at 1 bolus Per protocol; to be given as a bolus over 60 ss minutes Route: IV; Rate: 1 bolus; Site: right antecubital; 13:26 Follow up: IV Status: Completed infusion; IV Intake: 1000ml ss 14:21 Drug: TORadol - Ketorolac IVP 15 mg IVP once Route: IVP; Site: right antecubital; me1 14:55 Follow up: Response: No adverse reaction; Pain is decreased me1 14:21 Drug: metoCLOPramide IVP 10 mg IVP once; over 1 to 2 minutes Route: IVP; Site: right me1 antecubital; 14:55 Follow up: Response: No adverse reaction; Nausea is decreased me1 Disposition Summary: 08/25/24 14:54 Discharge Ordered Notes: Location: Home sb4 Problem: new sb4 Symptoms: have improved sb4 Condition: Stable sb4 Diagnosis - Nausea with vomiting, unspecified sb4 Followup: sb4 - With: Emergency Department - When: As needed - Reason: Trouble breathing, Worsening of condition Discharge Instructions: - Discharge Summary Sheet sb4 - Nausea and Vomiting, Adult sb4 Forms: - Patient Portal Instructions sb4 - Leadership Thank You Letter sb4 Prescriptions: - ondansetron 8 mg Oral Tablet,disintegrating - take 1 tablet ORAL route every 8 hours; 10 tablet; Refills: 0, Product sb4 Selection Permitted Signatures: Dispatcher [employer] EDEulalia Jimenez RN RN Antonia Ruiz PA-C PA-C sb4 Beatrice Zimmer RN RN me1 Corrections: (The following items were deleted from the chart) 11:39 11:39 CBC+H.LAB.BRZ ordered. EDMS EDMS 11:39 11:39 COMPREHENSIVE METABOLIC PANEL+C.LAB.BRZ ordered. EDMS EDMS 11:39 11:39 LIPASE+C.LAB.BRZ ordered. EDMS EDMS 11:39 Test, Urine+UC.LAB.BRZ ordered. EDMS EDMS 11:39 Urinalysis+U.LAB.BRZ ordered. EDMS EDMS
--- NOTE | 2024-08-25 14:54 | ER ---
Nurse's Notes [facility] Name: Deion Whitehead Age: 24 yrs Sex: Female : 2000 Arrival Date: 08/25/2024 Time: 11:20 Bed 23 Private MD: Diagnosis: Nausea with vomiting, unspecified Presentation: 08/25 11:44 Chief complaint: Patient states: N/V and abd cramping that began this morning. Pt ss reports she went out drinking last night and ate two gummies that she thought was candy, but turned out to be "shroom gummies". Coronavirus screen: Client denies travel out of the [place] in the last 14 days. Ebola Screen: Patient denies exposure to infectious person. Patient denies travel to an Ebola-affected area in the 21 days before illness onset. Initial Sepsis Screen: Does the patient meet any 2 criteria? No. Patient's initial sepsis screen is negative. Does the patient have a suspected source of infection? No. Patient's initial sepsis screen is negative. Risk Assessment: Do you want to hurt yourself or someone else? Patient reports no desire to harm self or others. Onset of symptoms was August 25, 2024. 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 - Infectious Disease History:: Denies. - Social history:: Smoking status: Patient denies any tobacco usage or history of. Screenin:10 [facility] ED Fall Risk Assessment (Adult) History of falling in the last 3 months, me1 including since admission No falls in past 3 months (0 pts) Confusion or Disorientation No (0 pts) Intoxicated or Sedated No (0 pts) Impaired Gait No (0 pts) Mobility Assist Device Used No (0 pt) Altered Elimination No (0 pt) Score/Fall Risk Level 0 - 2 = Low Risk Maintained a safe environment, Provided non-skid footwear, Hourly rounding (assess needs \\T\\ fall precautionary measures) done. Abuse screen: Denies threats or abuse. Nutritional screening: No deficits noted. Tuberculosis screening: No symptoms or risk factors identified. Assessment: 12:10 General: Appears ill, well groomed, well developed, well nourished, Behavior is calm, me1 cooperative, appropriate for age, Reports N/V and abd cramping that began this morning. Pt reports she went out drinking last night and ate two gummies that she thought was candy, but turned out to be "shroom gummies". Pain: Complains of pain in abdomen Pain does not radiate. Pain currently is 6 out of 10 on a pain scale. Quality of pain is described as crampy, Pain began 4 hours ago. Is continuous. Neuro: Level of Consciousness is awake, alert, obeys commands, Oriented to person, place, time, situation, Appropriate for age. Cardiovascular: Patient's skin is warm and dry. Respiratory: Airway is patent Respiratory effort is even, unlabored, Respiratory pattern is regular, symmetrical. GI: Abdomen is non-distended, Reports lower abdominal pain, upper abdominal pain, cramping, nausea, vomiting, since this morning. : No signs and/or symptoms were reported regarding the genitourinary system. EENT: No signs and/or symptoms were reported regarding the EENT system. Derm: Skin is intact, is healthy with good turgor, Skin is pink, warm \\T\\ dry. Musculoskeletal: No signs and/or symptoms reported regarding the musculoskeletal system. Vital Signs: 11:44 BP 133 / 84; Pulse 97; Resp 18; Temp 97.6(TE); Pulse Ox 98% on R/A; Weight 81.65 kg; ss Height 5 ft. 0 in. ; Pain 0/10; 12:30 BP 122 / 91; Pulse 76; Resp 16; Pulse Ox 99% ; me1 13:30 BP 104 / 69; Pulse 67; Resp 15; Pulse Ox 100% ; me1 14:30 BP 118 / 82; Pulse 76; Resp 15; Pulse Ox 100% ; me1 11:44 Body Mass Index 35.15 (81.65 kg, 152.4 cm) 11:44 Pain Scale: Adult ED Course: 11:21 Patient arrived in ED. mr 11:21 Antonia Good PA-C is PHCP. sb4 11:21 Ana An MD is Attending Physician. sb4 11:46 Triage completed. ss 11:46 Arm band placed on right wrist. ss 11:56 Inserted saline lock: 22 gauge in right antecubital area, using aseptic technique. ss Blood collected. Flushed with 10 mL NS. 12:02 Beatrice Zimmer, RN is Primary Nurse. me1 12:10 Patient has correct armband on for positive identification. Bed in low position. Call me1 light in reach. Side rails up X2. Provided Education on: POC. Verbalized understanding.. Client placed on continuous cardiac and pulse oximetry monitoring. NIBP monitoring applied. Pulse ox on. NIBP on. 12:10 No provider procedures requiring assistance completed. me1 14:35 CT Abd/Pelvis - IV Contrast Only In Process Unspecified. EDMS 15:02 IV discontinued, intact, bleeding controlled, No redness/swelling at site. Pressure me1 dressing applied. Administered Medications: 12:08 Drug: Ondansetron IVP 4 mg IVP once; over 2 minutes Route: IVP; Site: right antecubital;ss 13:25 Follow up: Response: No adverse reaction ss 12:11 Drug: Famotidine IVP 20 mg IVP once; dilute with 10 mL 0.9% NaCl; give over 2 minutes ss Route: IVP; Site: right antecubital; 13:25 Follow up: Response: No adverse reaction 12:11 Drug: NS 0.9% IV 1000 ml IV at 1 bolus Per protocol; to be given as a bolus over 60 ss minutes Route: IV; Rate: 1 bolus; Site: right antecubital; 13:26 Follow up: IV Status: Completed infusion; IV Intake: 1000ml ss 14:21 Drug: TORadol - Ketorolac IVP 15 mg IVP once Route: IVP; Site: right antecubital; mt1 14:55 Follow up: Response: No adverse reaction; Pain is decreased me1 14:21 Drug: metoCLOPramide IVP 10 mg IVP once; over 1 to 2 minutes Route: IVP; Site: right me1 antecubital; 14:55 Follow up: Response: No adverse reaction; Nausea is decreased me1 Medication: 12:10 VIS not applicable for this client. me1 Intake: 13:26 IV: 1000ml; Total: 1000ml. ss Outcome: 14:54 Discharge ordered by . sb4 15:02 Discharged to home ambulatory, with friend, navid 15:02 Condition: stable 15:02 Discharge instructions given to patient, Instructed on discharge instructions, follow up and referral plans. medication usage, Demonstrated understanding of instructions, follow-up care, medications, Prescriptions given X 1, 15:27 Patient left the ED. me1 Signatures: Dispatcher [employer] EDMS Betty Mejia, Reg Reg mr Eulalia Merritt, RN RN ss Antonia Good, PA-C PA-C sb4 Beatrice Zimmer RN RN me1 Corrections: (The following items were deleted from the chart) 13:43 11:44 Chief complaint: Patient states: N/V and abd cramping that began this morning. Pt me1 reports she went out drinking last night and ate two gummies that she thought was candy, but turned out to be "shroom gummies" ss
[2024-08-25 18:43] VITALS: TEMP 97.6
[2024-08-25 18:48] VITALS: O2SAT 100
[2024-08-25 18:49] VITALS: BP 118/82
== END 2024-08-25 15:27 | disposition home or self-care (01) ==
LOC: ER 11:20
DX: R11.2 Nausea with vomiting, unspecified (principal); F41.9 Anxiety disorder, unspecified; I10 Essential (primary) hypertension; F32.A Depression, unspecified
CPT/HCPCS: 36415; 74177; 80053; 81001; 81025; 83690; 85025; 96361; 96374; 96375; 99284; J2405; J2765; J7030; Q9967